=== PATIENT | female | born 1940 | race Caucasian/White ===

== ENCOUNTER 2018-10-23 10:26 | Emergency (ER) | payer OTHER, MEDICAID ==
[~2018-10-23] VITALS: Ht 157.5 cm; Wt 57.4 kg
[2018-10-23 10:33] VITALS: BP 143/74
--- NOTE | 2018-10-23 10:37 | NUR ---
PT AMBULATES TO BED 2
--- NOTE | 2018-10-23 10:41 | NUR ---
Patient being evaluated by physician at bedside.
--- NOTE | 2018-10-23 10:55 | NUR ---
pt. bib grand daughter due to l buttocks pain that radiates to bilat legs. 8/10 sharp pain that worsens when walking. Pt. denies any fall or injury. Bilat pitting edema noted L 3+ and r 2+. rr even and unlabored. denies SOB, denies CP. VSS. Pt. able to speak in full and complete sentences. Cap refill less than 3 sec on bilat. feet. pedal pulses present bilat. ER MD made aware. Safety Precautions Implemented. Grand daughter at bedside. Will continue to monitor.
--- NOTE | 2018-10-23 11:13 | NUR ---
LAB AT BEDSIDE AT THIS TIME
--- NOTE | 2018-10-23 11:19 | NUR ---
XRAY AT BEDSIDE AT THIS TIME
[2018-10-23 11:44] LABS: BASOPHILS % (AUTO) 0.3 % (0.0-2.0); EOSINOPHILS # (AUTO) 0.1 K/uL (0-0.4); EOSINOPHILS % (AUTO) 0.8 % (0.0-4.0); HEMATOCRIT 30.4 % (36-48); HEMOGLOBIN 9.6 g/dL (12.0-16.0); LYMPHOCYTES # (AUTO) 1.4 K/uL (2.5-16.5); LYMPHOCYTES % (AUTO) 12.7 % (20.5-51.1); MEAN CORPUSCULAR HEMOGLOBIN 29 pg (27-31); MEAN CORPUSCULAR HGB CONC 32 g/dL (33-37); MONOCYTES # (AUTO) 0.8 K/uL (0.8-1.0); NEUTROPHILS # (AUTO) 8.7 K/uL (1.8-7.7); NEUTROPHILS % (AUTO) 79.2 % (42.2-75.2); PLATELET COUNT (AUTO) 221 K/uL (140-450); RED BLOOD CELL COUNT(AUTO) 3.37 MIL/uL (4.20-5.40); RED CELL DISTRIBUTION WIDTH 16.6 % (11.6-13.7)
--- NOTE | 2018-10-23 11:52 | NUR ---
US AT BEDSIDE
[2018-10-23 11:55] LABS: ANION GAP 12.7 (8-16); CARBON DIOXIDE 24.2 mmol/L (21-32); CHLORIDE 109 mmol/L (98-107); CREATININE 1.7 mg/dL (0.6-1.3); GLUCOSE 162 mg/dL (74-106); POTASSIUM 4.9 mmol/L (3.5-5.1); SODIUM SERUM 141 mmol/L (136-145); UREA NITROGEN, BLOOD 35 mg/dL (7-18)
[2018-10-23 12:00] LABS: PROTHROMBIN TIME 9.4 secs (10.8-13.4)
[2018-10-23 12:01] LABS: APPEARANCE,URINE CLEAR (CLEAR); BILIRUBIN,URINE NEGATIVE (NEGATIVE); BLOOD, URINE NEGATIVE (NEGATIVE); COLOR,URINE YELLOW (YELLOW); LEUKOCYTE ESTERASE ,URINE TRACE (NEGATIVE); NITRITE, URINE NEGATIVE (NEGATIVE); PH,URINE 6.5 (5.0-9.0); UGLUCOSE NEGATIVE (NEGATIVE)
[2018-10-23 12:02] LABS: ALBUMIN 2.1 g/dL (3.4-5.0); ASPARTATE AMINOTRANSFERASE 17 U/L (15-37); TOTAL BILIRUBIN 0.2 mg/dL (0.0-1.0)
[2018-10-23 12:05] LABS: MAGNESIUM 2.1 mg/dL (1.8-2.4)
[2018-10-23 12:08] LABS: RBC,URINE 0-5 (RARE) /HPF (0-5)
--- NOTE | 2018-10-23 12:24 | NUR ---
REPORT FOR IMAGING AND US NOT AVAILABLE AT THIS TIME, CALLED AND SPOKE TO ANGELIKA WHO STATED " I WILL FOLLOW UP ON THE REPORTS".
--- NOTE | 2018-10-23 13:00 | NUR ---
PT. RESTING COMFORTABLY IN BED, RR EVEN AND UNLABORED. HOB ELEVATED. WILL CONTINUE TO MONITOR. FAMILY AT BEDSIDE.
[2018-10-23] MEDS ORDERED: DEXAMETHASONE 10 MG/ML VIAL IM ONE (13:35)
[2018-10-23 14:20] VITALS: BP 145/74
--- NOTE | 2018-10-23 14:20 | NUR ---
Patient discharged with v/s stable. Written and verbal after care instructions given and explained. Patient alert, oriented and verbalized understanding of instructions. Ambulatory with steady gait. All questions addressed prior to discharge. ID band removed. Patient advised to follow up with PMD. Rx of Tramadol 50mg given. Patient educated on indication of medication including possible reaction and side effects. Opportunity to ask questions provided and answered.
== END 2018-10-23 14:20 | disposition home or self-care (01) ==
LOC: MED 10:26
DX: M16.12 Unilateral primary osteoarthritis, left hip (principal); N18.3 Chronic kidney disease, stage 3 (moderate)
CPT/HCPCS: 36415; 71045; 73502; 80053; 81001; 83735; 83880; 84484; 84550; 85025; 85379; 85610; 85730; 87086; 93005; 93971; 96372; 99284; J1100; Q0092

== ENCOUNTER 2019-05-31 17:16 | Emergency (ER) | payer OTHER, MEDICAID ==
[~2019-05-31] VITALS: Ht 154.9 cm; Wt 54.4 kg
[2019-05-31 17:43] VITALS: BP 116/62
--- NOTE | 2019-05-31 18:02 | NUR ---
PT BIB WHEELCHAIR TO ER BED 1
--- NOTE | 2019-05-31 18:23 | NUR ---
US TECH AT BEDSIDE
--- NOTE | 2019-05-31 18:26 | NUR ---
79F BIB FAMILY C/O RT LEG PAIN X3 WEEKS , W/ SWELLING AND WARMTH. DENIES ERYTHEMA. STATES AMBULATORY WITH LIMP. WILL CONTINUE ASSESSMENT WHEN ULTRASOUND IS COMPLETE PMH OSTEOATHRITIS, KIDNEY DISEASE
[2019-05-31] MEDS ORDERED: ACETAMINOPHEN 650 MG SUPP RC ONE (19:30)
[2019-05-31] MEDS ORDERED: ACETAMINOPHEN 325 MG TAB PO ONE (19:55)
[2019-05-31] MEDS ORDERED: ACETAMINOPHEN 325 MG TAB ONE (20:03)
[2019-05-31 20:56] VITALS: BP 124/59
== END 2019-05-31 20:56 | disposition home or self-care (01) ==
LOC: MED 17:16
DX: M17.11 Unilateral primary osteoarthritis, right knee (principal); Z88.8 Allergy status to other drugs, medicaments and biological substances
CPT/HCPCS: 73562; 93971; 99284; Q0092

== ENCOUNTER 2021-09-01 12:38 | Inpatient (IN) | payer OTHER, MEDICAID ==
[~2021-09-01] VITALS: Ht 152.4 cm; Wt 59.9 kg
[2021-09-01 12:40] VITALS: BP 101/38
[2021-09-01] MEDS ORDERED: ONDANSETRON 4 MG/2 ML VIAL IVP ONE ×2 (14:15→16:05)
[2021-09-01] MEDS ORDERED: MORPHINE SULFATE 2 MG/ML SYR IVP ONE (14:15)
[2021-09-01 14:37] LABS: BASOPHILS # (AUTO) 0.2 K/uL (0.00-0.22); BASOPHILS % (AUTO) 1.2 % (0.0-2.0); EOSINOPHILS % (AUTO) 0.3 % (0.0-4.0); HEMATOCRIT 32.3 % (36-48); HEMOGLOBIN 10.7 g/dL (12.0-16.0); LYMPHOCYTES % (AUTO) 6.8 % (20.5-51.1); MEAN CORPUSCULAR HEMOGLOBIN 29 pg (27-31); MEAN CORPUSCULAR HGB CONC 33 g/dL (33-37); MEAN CORPUSCULAR VOLUME 88.6 fL (80-94); MONOCYTES % (AUTO) 7.2 % (1.7-9.3); NEUTROPHILS # (AUTO) 12.3 K/uL (1.8-7.7); NEUTROPHILS % (AUTO) 84.5 % (42.2-75.2); PLATELET COUNT (AUTO) 289 K/uL (140-450); RED BLOOD CELL COUNT(AUTO) 3.65 MIL/uL (4.20-5.40); RED CELL DISTRIBUTION WIDTH 13.5 % (11.6-13.7); WHITE BLOOD COUNT (AUTO) 14.6 K/uL (4.8-10.8)
[2021-09-01] MEDS ORDERED: NACL 0.9% 1,000 ML IV SCH (14:55)
[2021-09-01 15:10] LABS: APPEARANCE,URINE CLEAR (CLEAR); BILIRUBIN,URINE NEGATIVE (NEGATIVE); BLOOD, URINE 1+ (NEGATIVE); COLOR,URINE YELLOW (YELLOW); LEUKOCYTE ESTERASE ,URINE 1+ (NEGATIVE); NITRITE, URINE NEGATIVE (NEGATIVE); UGLUCOSE TRACE (NEGATIVE)
[2021-09-01 15:22] LABS: ALBUMIN 2.7 g/dL (3.4-5.0); AMYLASE 56 U/L (25-115); ASPARTATE AMINOTRANSFERASE 20 U/L (15-37); CARBON DIOXIDE 22.2 mmol/L (21-32); CHLORIDE 103 mmol/L (98-107); GLUCOSE 240 mg/dL (74-106); LIPASE 111 U/L (73-393); POTASSIUM 3.2 mmol/L (3.5-5.1); SODIUM SERUM 136 mmol/L (136-145); TOTAL BILIRUBIN 0.3 mg/dL (0.0-1.0); UREA NITROGEN, BLOOD 40 mg/dL (7-18)
[2021-09-01 15:27] LABS: RBC,URINE 0-5 /HPF (0-5)
[2021-09-01] MEDS ORDERED: ONDANSETRON 4 MG/2 ML VIAL ONE (15:29)
[2021-09-01] MEDS ORDERED: ASPIRIN 81 MG TAB.CHEW PO SCH (17:40)
[2021-09-01] MEDS ORDERED: GABA100C PO (19:33)
[2021-09-01] MEDS ORDERED: METO25TE2 PO (19:33)
[2021-09-01] MEDS ORDERED: FERR325E14 PO (19:33)
[2021-09-01] MEDS ORDERED: ASPI-1379 PO (19:33)
[2021-09-01] MEDS ORDERED: PRED10TA5 PO (19:33)
[2021-09-01] MEDS ORDERED: guaiFENesin DM 200/20 MG-10 ML 10 ML UDC PO PRN (21:05)
[2021-09-01] MEDS ORDERED: DOCUSATE SODIUM 100 MG GELCAP PO PRN (21:05)
[2021-09-01] MEDS ORDERED: ACETAMINOPHEN 325 MG TAB PO PRN (21:05)
[2021-09-01] MEDS ORDERED: POTASSIUM CHLORIDE 10 MEQ TABER PO PRN (21:05)
[2021-09-01] MEDS ORDERED: ONDANSETRON 4 MG/2 ML VIAL IM/IVP PRN (21:05)
[2021-09-01] MEDS ORDERED: ZOLPIDEM 5 MG TAB PO PRN (21:05)
[2021-09-01] MEDS: NACL 0.9% 1,000 ML IV SCH (21:09)
[2021-09-01] MEDS ORDERED: NITROGLYCERIN 0.4 MG TAB SL PRN (21:10)
[2021-09-01 21:29] LABS: BARBITURATE, URINE NEGATIVE ng/ml (NEG <=200); BENZODIAZEPINE, URINE NEGATIVE ng/mL (NEG <=200)
[2021-09-01 21:30] LABS: CANNABINOID, URINE NEGATIVE ng/mL (NEG <=50); COCAINE, URINE NEGATIVE ng/mL (NEG <=300); OPIATE, URINE NEGATIVE ng/mL (NEG <=2000); PHENCYCLIDINE SCREEN,URINE NEGATIVE ng/mL (NEG <=25)
[2021-09-01 21:45] LABS: PROTHROMBIN TIME 9.6 secs (10.8-13.4)
[2021-09-01 21:56] LABS: CHOL/HDL RATIO 2.4 (1-4.5); FREE T4 (FREE THYROXINE) 0.97 ng/dL (0.76-1.46); MAGNESIUM 2.2 mg/dL (1.8-2.4); PHOSPHORUS 2.3 mg/dL (2.5-4.9); THYROID STIMULATING HORMONE 0.03 uIU/mL (0.34-3.74)
[2021-09-01] MEDS ORDERED: cefTRIAXone 1,000 MG VIAL ONE (23:54)
[2021-09-02] MEDS: NACL 0.9% 1,000 ML IV SCH ×4 (00:15→15:44)
[2021-09-02 04:00] VITALS: BP 111/53
[2021-09-02 07:12] LABS: ANION GAP 11.1 (8-16); CARBON DIOXIDE 24.4 mmol/L (21-32); CHLORIDE 109 mmol/L (98-107); CREATININE 1.6 mg/dL (0.6-1.3); GLUCOSE 86 mg/dL (74-106); POTASSIUM 3.5 mmol/L (3.5-5.1); SODIUM SERUM 141 mmol/L (136-145); UREA NITROGEN, BLOOD 31 mg/dL (7-18)
[2021-09-02 07:17] LABS: BASOPHILS % (AUTO) 0.2 % (0.0-2.0); EOSINOPHILS # (AUTO) 0.1 K/uL (0-0.4); EOSINOPHILS % (AUTO) 1.2 % (0.0-4.0); HEMATOCRIT 30.4 % (36-48); HEMOGLOBIN 10.1 g/dL (12.0-16.0); LYMPHOCYTES # (AUTO) 1.7 K/uL (2.5-16.5); LYMPHOCYTES % (AUTO) 19.4 % (20.5-51.1); MEAN CORPUSCULAR HEMOGLOBIN 29 pg (27-31); MEAN CORPUSCULAR HGB CONC 33 g/dL (33-37); MEAN CORPUSCULAR VOLUME 88.9 fL (80-94); MONOCYTES # (AUTO) 0.8 K/uL (0.8-1.0); MONOCYTES % (AUTO) 9.5 % (1.7-9.3); NEUTROPHILS # (AUTO) 6.2 K/uL (1.8-7.7); NEUTROPHILS % (AUTO) 69.7 % (42.2-75.2); PLATELET COUNT (AUTO) 244 K/uL (140-450); RED BLOOD CELL COUNT(AUTO) 3.42 MIL/uL (4.20-5.40); RED CELL DISTRIBUTION WIDTH 13.7 % (11.6-13.7)
[2021-09-02 08:00] VITALS: BP 115/77
[2021-09-02] MEDS: ECOTRIN 81 MG TABEC PO SCH (08:44)
[2021-09-02] MEDS: FERROUS SULFATE 325 MG TABEC PO SCH ×3 (08:44→17:45)
[2021-09-02] MEDS: PANTOPRAZOLE 40 MG TABEC PO SCH (08:45)
[2021-09-02] MEDS: lisinopriL 5 MG TAB PO SCH (08:45)
[2021-09-02] MEDS ORDERED: METOPROLOL 25 MG TAB PO SCH (09:00)
[2021-09-02] MEDS: METOPROLOL SUCCINATE 50 MG TABER PO SCH (10:41)
[2021-09-02 12:00] VITALS: BP 117/57
[2021-09-02] MEDS: HYDROcodone/APAP 7.5/325 MG 1 TAB PO PRN (12:51)
[2021-09-02 16:00] VITALS: BP 115/58
[2021-09-02] MEDS: ATORVASTATIN 20 MG TAB PO SCH (17:44)
[2021-09-02 20:00] VITALS: BP 102/51
[2021-09-02] MEDS: GABAPENTIN 100 MG CAP PO SCH (21:30)
[2021-09-03] VITALS: BP 95/40
[2021-09-03 04:00] VITALS: BP 105/55
[2021-09-03] MEDS: NACL 0.9% 1,000 ML IV SCH ×2 (06:25→23:05)
[2021-09-03 06:27] LABS: BASOPHILS % (AUTO) 0.4 % (0.0-2.0); EOSINOPHILS # (AUTO) 0.1 K/uL (0-0.4); EOSINOPHILS % (AUTO) 0.7 % (0.0-4.0); HEMATOCRIT 28.4 % (36-48); HEMOGLOBIN 9.4 g/dL (12.0-16.0); LYMPHOCYTES # (AUTO) 1.6 K/uL (2.5-16.5); LYMPHOCYTES % (AUTO) 16.2 % (20.5-51.1); MEAN CORPUSCULAR HEMOGLOBIN 30 pg (27-31); MEAN CORPUSCULAR HGB CONC 33 g/dL (33-37); MEAN CORPUSCULAR VOLUME 89.3 fL (80-94); MONOCYTES # (AUTO) 1.1 K/uL (0.8-1.0); MONOCYTES % (AUTO) 10.9 % (1.7-9.3); NEUTROPHILS # (AUTO) 7.2 K/uL (1.8-7.7); NEUTROPHILS % (AUTO) 71.8 % (42.2-75.2); PLATELET COUNT (AUTO) 248 K/uL (140-450); RED BLOOD CELL COUNT(AUTO) 3.18 MIL/uL (4.20-5.40); RED CELL DISTRIBUTION WIDTH 13.5 % (11.6-13.7); WHITE BLOOD COUNT (AUTO) 10.1 K/uL (4.8-10.8)
[2021-09-03 06:51] LABS: ANION GAP 13.5 (8-16); CHLORIDE 111 mmol/L (98-107); CREATININE 1.6 mg/dL (0.6-1.3); GLUCOSE 80 mg/dL (74-106); POTASSIUM 3.5 mmol/L (3.5-5.1); SODIUM SERUM 142 mmol/L (136-145); UREA NITROGEN, BLOOD 25 mg/dL (7-18)
[2021-09-03 08:00] VITALS: BP 93/52
[2021-09-03] MEDS ORDERED: REGADENOSON 0.4 MG/5 ML SYR IV SCH (08:00)
[2021-09-03] MEDS: METOPROLOL SUCCINATE 50 MG TABER PO SCH (08:28)
[2021-09-03] MEDS: PANTOPRAZOLE 40 MG TABEC PO SCH (08:28)
[2021-09-03] MEDS: FERROUS SULFATE 325 MG TABEC PO SCH ×3 (08:28→17:46)
[2021-09-03] MEDS: ECOTRIN 81 MG TABEC PO SCH (08:28)
[2021-09-03] MEDS: lisinopriL 5 MG TAB PO SCH (08:29)
[2021-09-03 09:06] LABS: T4 (THYROXINE) 5.7 ug/dL (4.5-12.0)
[2021-09-03 12:00] VITALS: BP 93/52
[2021-09-03 16:00] VITALS: BP 107/51
[2021-09-03] MEDS: ATORVASTATIN 20 MG TAB PO SCH (17:46)
[2021-09-03 20:00] VITALS: BP 98/54
[2021-09-03] MEDS: HYDROcodone/APAP 7.5/325 MG 1 TAB PO PRN (20:19)
[2021-09-03] MEDS: GABAPENTIN 100 MG CAP PO SCH (20:19)
[2021-09-04] VITALS: BP 126/53
[2021-09-04 04:00] VITALS: BP 127/62
[2021-09-04 06:23] LABS: BASOPHILS % (AUTO) 0.4 % (0.0-2.0); EOSINOPHILS # (AUTO) 0.2 K/uL (0-0.4); EOSINOPHILS % (AUTO) 1.7 % (0.0-4.0); HEMATOCRIT 30.8 % (36-48); HEMOGLOBIN 10.2 g/dL (12.0-16.0); LYMPHOCYTES # (AUTO) 1.6 K/uL (2.5-16.5); LYMPHOCYTES % (AUTO) 16.2 % (20.5-51.1); MEAN CORPUSCULAR HEMOGLOBIN 30 pg (27-31); MEAN CORPUSCULAR HGB CONC 33 g/dL (33-37); MEAN CORPUSCULAR VOLUME 89.5 fL (80-94); MONOCYTES # (AUTO) 0.8 K/uL (0.8-1.0); MONOCYTES % (AUTO) 8.7 % (1.7-9.3); NEUTROPHILS # (AUTO) 7.1 K/uL (1.8-7.7); PLATELET COUNT (AUTO) 271 K/uL (140-450); RED BLOOD CELL COUNT(AUTO) 3.44 MIL/uL (4.20-5.40); RED CELL DISTRIBUTION WIDTH 13.8 % (11.6-13.7); WHITE BLOOD COUNT (AUTO) 9.7 K/uL (4.8-10.8)
[2021-09-04 06:34] LABS: ANION GAP 12.8 (8-16); CARBON DIOXIDE 21.6 mmol/L (21-32); CHLORIDE 112 mmol/L (98-107); CREATININE 1.6 mg/dL (0.6-1.3); GLUCOSE 89 mg/dL (74-106); POTASSIUM 3.4 mmol/L (3.5-5.1); SODIUM SERUM 143 mmol/L (136-145); UREA NITROGEN, BLOOD 21 mg/dL (7-18)
[2021-09-04 08:00] VITALS: BP 105/61
[2021-09-04] MEDS ORDERED: ATOR20TA40 PO (08:58)
[2021-09-04] MEDS ORDERED: LISI5TAB24 PO (08:58)
[2021-09-04] MEDS: ECOTRIN 81 MG TABEC PO SCH (09:53)
[2021-09-04] MEDS: METOPROLOL SUCCINATE 50 MG TABER PO SCH (09:53)
[2021-09-04] MEDS: FERROUS SULFATE 325 MG TABEC PO SCH (09:54)
[2021-09-04] MEDS: PANTOPRAZOLE 40 MG TABEC PO SCH (09:54)
[2021-09-04] MEDS: lisinopriL 5 MG TAB PO SCH (09:54)
[2021-09-04 15:07] LABS: URINE TOTAL PROTEIN 93.4 mg/dL (0-12)
== END 2021-09-04 13:00 | disposition home health service (06) | DRG 871 ==
LOC: MED 12:38 → MTU 18:06
PROVIDERS: ADMIT Family Medicine; ATTEND Family Medicine
DX: A41.9 Sepsis, unspecified organism (principal); E43 Unspecified severe protein-calorie malnutrition; N17.0 Acute kidney failure with tubular necrosis; I21.A1 Myocardial infarction type 2; N39.0 Urinary tract infection, site not specified; I31.3 Pericardial effusion (noninflammatory); I45.2 Bifascicular block; J90 Pleural effusion, not elsewhere classified; E87.6 Hypokalemia; I87.8 Other specified disorders of veins; E83.39 Other disorders of phosphorus metabolism; M19.90 Unspecified osteoarthritis, unspecified site; K44.9 Diaphragmatic hernia without obstruction or gangrene; K74.60 Unspecified cirrhosis of liver; E78.5 Hyperlipidemia, unspecified; K76.0 Fatty (change of) liver, not elsewhere classified; I12.9 Hypertensive chronic kidney disease with stage 1 through stage 4 chronic kidney disease, or unspecified chronic kidney disease; N18.9 Chronic kidney disease, unspecified; Z90.49 Acquired absence of other specified parts of digestive tract
CPT/HCPCS: 36415; 71045; 80048; 80053; 80305; 81001; 82150; 82570; 83036; 83690; 83735; 83880; 84100; 84300; 84436; 84439; 84443; 84479; 84484; 85025; 85610; 85730; 87081; 87086; 93005; 93017; 93970; 96361; 96374; 96375; 99291; A9500; A9502; J0696; J1644; J2270; J2405; J2785; J7060; Q0092

== ENCOUNTER 2022-11-08 09:47 | Inpatient (IN) | payer OTHER, MEDICAID ==
[~2022-11-08] VITALS: Ht 157.5 cm; Wt 61.2 kg
[~2022-11-08 09:47] MED LIST: ASPI-1379 PO; ATOR20TA40 PO; FERR325E14 PO; GABA100C PO; LISI5TAB24 PO; METO25TE2 PO; PRED10TA5 PO
[2022-11-08 09:53] VITALS: BP 91/59
--- NOTE | 2022-11-08 10:29 | NUR ---
Pt ambulated with assistance to bed 07.
[2022-11-08] MEDS ORDERED: NACL 0.9% 1,000 ML IV ONE (11:25)
--- NOTE | 2022-11-08 11:36 | NUR ---
X-Ray at bedside.
--- NOTE | 2022-11-08 11:36 | NUR ---
Handed Michelle and Flu swabs to lab.
[2022-11-08 12:13] LABS: ALBUMIN 3.1 g/dL (3.4-5.0); ANION GAP 14.4 (8-16); ASPARTATE AMINOTRANSFERASE 18 U/L (15-37); CARBON DIOXIDE 26.7 mmol/L (21-32); CHLORIDE 110 mmol/L (98-107); CREATININE 1.9 mg/dL (0.6-1.3); GLUCOSE 101 mg/dL (74-106); LIPASE 51 U/L (73-393); POTASSIUM 4.1 mmol/L (3.5-5.1); SODIUM SERUM 147 mmol/L (136-145); TOTAL BILIRUBIN 0.4 mg/dL (0.0-1.0); UREA NITROGEN, BLOOD 32 mg/dL (7-18)
--- NOTE | 2022-11-08 12:15 | NUR ---
Trop of 1.59 reported to ER .
[2022-11-08 12:32] LABS: BASOPHILS % (AUTO) 0.2 % (0.0-2.0); EOSINOPHILS # (AUTO) 0.1 K/uL (0-0.4); EOSINOPHILS % (AUTO) 0.4 % (0.0-4.0); HEMATOCRIT 32.9 % (36-48); HEMOGLOBIN 10.7 g/dL (12.0-16.0); LYMPHOCYTES # (AUTO) 1.5 K/uL (2.5-16.5); LYMPHOCYTES % (AUTO) 9.7 % (20.5-51.1); MEAN CORPUSCULAR HEMOGLOBIN 30 pg (27-31); MEAN CORPUSCULAR HGB CONC 33 g/dL (33-37); MEAN CORPUSCULAR VOLUME 90.8 fL (80-94); MONOCYTES # (AUTO) 1.3 K/uL (0.8-1.0); MONOCYTES % (AUTO) 8.3 % (1.7-9.3); NEUTROPHILS # (AUTO) 12.9 K/uL (1.8-7.7); NEUTROPHILS % (AUTO) 81.4 % (42.2-75.2); PLATELET COUNT (AUTO) 248 K/uL (140-450); RED BLOOD CELL COUNT(AUTO) 3.63 MIL/uL (4.20-5.40); RED CELL DISTRIBUTION WIDTH 14.1 % (11.6-13.7); WHITE BLOOD COUNT (AUTO) 15.9 K/uL (4.8-10.8)
[2022-11-08] MEDS ORDERED: MORPHINE SULFATE 2 MG/ML SYR IVP PRN (14:05)
[2022-11-08] MEDS ORDERED: ZOLPIDEM 10 MG TAB PO PRN (14:05)
[2022-11-08] MEDS ORDERED: POTASSIUM CHLORIDE 10 MEQ TABER PO PRN (14:05)
[2022-11-08] MEDS ORDERED: MAG SULF 2000 MG/WATER PREMIX 50 ML IV PRN (14:05)
[2022-11-08] MEDS ORDERED: ACETAMINOPHEN 325 MG TAB PO PRN (14:05)
[2022-11-08] MEDS ORDERED: LORazepam 2 MG/ML VIAL IVP PRN (14:05)
[2022-11-08] MEDS ORDERED: DOCUSATE SODIUM 100 MG GELCAP PO PRN (14:05)
--- NOTE | 2022-11-08 14:24 | NUR ---
Pt provided with sandwich and juice.
[2022-11-08] MEDS ORDERED: AZITHROMYCIN 500 MG INJ VIAL IV ONE (15:14)
[2022-11-08] MEDS: AZITHROMYCIN 500 MG in DEXTROSE 5% 250 ML IV SCH (15:16)
[2022-11-08] MEDS: ONDANSETRON 4 MG/2 ML VIAL IVP PRN (16:12)
[2022-11-08] MEDS ORDERED: cefTRIAXone 1,000 MG VIAL ONE (17:22)
[2022-11-08] MEDS: FERROUS SULFATE 325 MG TABEC PO SCH (17:32)
[2022-11-08] MEDS: ATORVASTATIN 20 MG TAB PO SCH (17:32)
--- NOTE | 2022-11-08 20:29 | NUR ---
GAVE REPORT TO TERE MOROCHO . WILL TRANSPORT PT VIA [facility]
--- NOTE | 2022-11-08 20:48 | NUR ---
Patient will be admitted to care of . Admited to[facility]URG. Will go to [id number]. Belongings list completed. Report to TERE MOROCHO.
--- NOTE | 2022-11-08 20:52 | NUR ---
PT TRANSPORTED [facility]ANC[facility]LL[facility] FROM ER. PT IS AMBULATORY. GAIT STEADY. PT IS ALERT AND ORIENTATED PRYDEINIG SPEAKER. PT IS ON NC 2L SATING 98%. PT HAS RIGHT HAND 20 GAUGE SALINE LOCK. PLAN OF CARE DISCUSSED. 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 WILL CONTINUE TO MONITOR THE PT.
[2022-11-08 21:00] VITALS: BP 93/40
[2022-11-08] MEDS: GABAPENTIN 100 MG CAP PO SCH (21:44)
--- NOTE | 2022-11-08 21:45 | NUR ---
SCHEDULE MEDICATION GIVEN. NO ADVERSE REACTION NOTED. WILL CONTINUE TO MONITOR THE PT.
[2022-11-08] MEDS ORDERED: guaiFENesin DM 200/20 MG-10 ML 10 ML UDC PO PRN (22:10)
[2022-11-09] VITALS: BP 112/56
--- NOTE | 2022-11-09 00:59 | NUR ---
PT IS SLEEPING IN BED COMFORTABLY. PT IS NOT IN ANY DISTRESS. BREATHING EVEN AND UNLABORED. SAFETY PRECAUTIONS TAKEN. WILL CONTINUE TO MONITOR THE PT.
[2022-11-09 04:00] VITALS: BP 112/56
--- NOTE | 2022-11-09 05:21 | NUR ---
OBSERVED PT. PT IS AWAKE AND SITTING BY BEDSIDE. PT DENIES ANY PAIN AND HAS NO COMPLAINS AT THIS TIME. CALL LIGHT WITHIN REACH. WILL CONTINUE TO MONITOR THE PT.
[2022-11-09 07:20] LABS: ANION GAP 8.7 (8-16); CARBON DIOXIDE 26.3 mmol/L (21-32); CHLORIDE 110 mmol/L (98-107); CREATININE 1.8 mg/dL (0.6-1.3); GLUCOSE 85 mg/dL (74-106); SODIUM SERUM 141 mmol/L (136-145); UREA NITROGEN, BLOOD 21 mg/dL (7-18)
[2022-11-09 07:25] LABS: BASOPHILS # (AUTO) 0.1 K/uL (0.00-0.22); BASOPHILS % (AUTO) 0.8 % (0.0-2.0); EOSINOPHILS # (AUTO) 0.2 K/uL (0-0.4); EOSINOPHILS % (AUTO) 1.1 % (0.0-4.0); HEMATOCRIT 29.1 % (36-48); HEMOGLOBIN 9.6 g/dL (12.0-16.0); LYMPHOCYTES # (AUTO) 1.9 K/uL (2.5-16.5); MEAN CORPUSCULAR HEMOGLOBIN 30 pg (27-31); MEAN CORPUSCULAR HGB CONC 33 g/dL (33-37); MEAN CORPUSCULAR VOLUME 90.3 fL (80-94); MONOCYTES # (AUTO) 0.7 K/uL (0.8-1.0); MONOCYTES % (AUTO) 5.2 % (1.7-9.3); NEUTROPHILS # (AUTO) 10.8 K/uL (1.8-7.7); NEUTROPHILS % (AUTO) 78.9 % (42.2-75.2); PLATELET COUNT (AUTO) 208 K/uL (140-450); RED BLOOD CELL COUNT(AUTO) 3.23 MIL/uL (4.20-5.40); RED CELL DISTRIBUTION WIDTH 14.2 % (11.6-13.7); WHITE BLOOD COUNT (AUTO) 13.7 K/uL (4.8-10.8)
--- NOTE | 2022-11-09 07:25 | NUR ---
ENDORSED PT TO DAY SHIFT RN FOR CONTINUITY OF CARE. PT IS STABLE.
--- NOTE | 2022-11-09 07:26 | NUR ---
RECEIVED REPORT FROM MEDICAL VAN DRIVER NURSE LIBAN FOR CONTINUITY OF CARE. PT SLEEPING, EASILY AROUSABLE BY VERBAL STIMULI. RESPIRATIONS EVEN AND UNLABORED ON RA. NO DISTRESS NOTED. NO SIGNS OF PAIN. SKIN INTACT, WARM AND DRY TO TOUCH. CALL LIGHT WITHIN REACH. SAFETY PRECAUTIONS IN PLACE.
[2022-11-09 08:00] VITALS: BP 112/48
[2022-11-09] MEDS ORDERED: cefTRIAXone 1,000 MG in LIDOCAINE MPF 1% 2.1 ML IM SCH (09:00)
[2022-11-09] MEDS: ECOTRIN 81 MG TABEC PO SCH (09:22)
[2022-11-09] MEDS: FERROUS SULFATE 325 MG TABEC PO SCH ×3 (09:22→16:42)
[2022-11-09] MEDS: METOPROLOL SUCCINATE 50 MG TABER PO SCH (09:23)
--- NOTE | 2022-11-09 09:27 | NUR ---
ADMINISTERED DUE MEDS. PT TOLERATED WELL.
--- NOTE | 2022-11-09 12:55 | NUR ---
PT SITTING IN BED. FINISHED LUNCH, TOLERATED WELL. DENIES PAIN. FAMILY MEMBER AT BEDSIDE.
[2022-11-09] MEDS: AZITHROMYCIN 500 MG in DEXTROSE 5% 250 ML IV SCH (15:21)
--- NOTE | 2022-11-09 15:21 | NUR ---
IV AZITHROMYCIN ADMINISTERED BY RASHAWN SANTOS. NO ADVERSE REACTION NOTED.
[2022-11-09 16:00] VITALS: BP 112/60
[2022-11-09] MEDS: ATORVASTATIN 20 MG TAB PO SCH (16:42)
--- NOTE | 2022-11-09 18:26 | NUR ---
PT C/O OF HERNANDEZ 01/10. PRN PAIN MED GIVEN MD ORDERED.
--- NOTE | 2022-11-09 19:30 | NUR ---
RECEIVED REPORT FROM DAY SHIFT SHEN CLAYTON FOR CONTINUITY OF CARE. PT IS AAOX4 ON RA. PT NOT IN ANY RESPIRATORY DISTRESS. PT IS ENGLISH SPEAKER. PT HAS RIGHT HAND 20 GAUGE SALINE LOCK. PT DENIES ANY PAIN AND HAS NO COMPLAINS AT THIS TIME. CALL LIGHT WITHIN REACH. WILL CONTINUE TO MONITOR THE PT.
--- NOTE | 2022-11-09 19:41 | NUR ---
ENDORSED PT TO POWDER SHOVELER NURSE FOR CONTINUITY OF CARE. ALL NEEDS MET THROUGHOUT SHIFT. PT IS IN STABLE CONDITION.
[2022-11-09 20:00] VITALS: BP 103/44
[2022-11-09] MEDS: GABAPENTIN 100 MG CAP PO SCH (20:42)
[2022-11-09] MEDS: ONDANSETRON 4 MG/2 ML VIAL IVP PRN (20:47)
--- NOTE | 2022-11-09 20:50 | NUR ---
SCHEDULE MEDICATION GIVEN. NO ADVERSE REACTION NOTED. PT ALSO COMPLAINED OF NAUSEA. ZOFRAN GIVEN. NO OTHER COMPLAINS. WILL CONTINUE TO MONITOR THE PT.
[2022-11-10] VITALS: BP 96/42
--- NOTE | 2022-11-10 | NUR ---
PT IS SLEEPING IN BED COMFORTABLY. PT IS NOT IN ANY DISTRESS. BREATHING EVEN AND UNLABORED. SAFETY PRECAUTIONS TAKEN. WILL CONTINUE TO MONITOR THE PT.
[2022-11-10 04:00] VITALS: BP 96/42
--- NOTE | 2022-11-10 04:58 | NUR ---
PT IS SLEEPING IN BED COMFORTABLY. PT IS NOT IN ANY DISTRESS. BREATHING EVEN AND UNLABORED. SAFETY PRECAUTIONS TAKEN. WILL CONTINUE TO MONITOR THE PT.
--- NOTE | 2022-11-10 07:09 | NUR ---
ENDORSED PT TO DAY SHIFT RN FOR CONTINUITY OF CARE. PT IS STABLE.
--- NOTE | 2022-11-10 07:51 | NUR ---
11/10/2022 0800: PT RECEIVED FROM PM SHIFT. PT RESTING IN BED NO ACUTE DISTRESS NOTED AT THIS TIME. [id number].
[2022-11-10 07:53] LABS: BASOPHILS # (AUTO) 0.1 K/uL (0.00-0.22); BASOPHILS % (AUTO) 0.8 % (0.0-2.0); EOSINOPHILS # (AUTO) 0.2 K/uL (0-0.4); EOSINOPHILS % (AUTO) 1.9 % (0.0-4.0); HEMATOCRIT 30.6 % (36-48); HEMOGLOBIN 10.2 g/dL (12.0-16.0); LYMPHOCYTES # (AUTO) 1.8 K/uL (2.5-16.5); LYMPHOCYTES % (AUTO) 19.7 % (20.5-51.1); MEAN CORPUSCULAR HEMOGLOBIN 30 pg (27-31); MEAN CORPUSCULAR HGB CONC 33 g/dL (33-37); MEAN CORPUSCULAR VOLUME 89.8 fL (80-94); MONOCYTES # (AUTO) 0.5 K/uL (0.8-1.0); MONOCYTES % (AUTO) 5.4 % (1.7-9.3); NEUTROPHILS # (AUTO) 6.6 K/uL (1.8-7.7); NEUTROPHILS % (AUTO) 72.2 % (42.2-75.2); PLATELET COUNT (AUTO) 210 K/uL (140-450); RED BLOOD CELL COUNT(AUTO) 3.41 MIL/uL (4.20-5.40); RED CELL DISTRIBUTION WIDTH 13.8 % (11.6-13.7); WHITE BLOOD COUNT (AUTO) 9.2 K/uL (4.8-10.8)
[2022-11-10 08:00] VITALS: BP 105/58
[2022-11-10 08:17] LABS: ANION GAP 10.9 (8-16); CARBON DIOXIDE 25.9 mmol/L (21-32); CHLORIDE 108 mmol/L (98-107); CREATININE 1.6 mg/dL (0.6-1.3); GLUCOSE 92 mg/dL (74-106); POTASSIUM 3.8 mmol/L (3.5-5.1); SODIUM SERUM 141 mmol/L (136-145); UREA NITROGEN, BLOOD 16 mg/dL (7-18)
[2022-11-10] MEDS: FERROUS SULFATE 325 MG TABEC PO SCH ×2 (08:29→12:17)
[2022-11-10] MEDS: ECOTRIN 81 MG TABEC PO SCH (08:29)
[2022-11-10] MEDS: METOPROLOL SUCCINATE 50 MG TABER PO SCH (08:29)
--- NOTE | 2022-11-10 09:17 | NUR ---
PATIENT HAS BEEN SCREENED AND CATEGORIZED MODERATE NUTRITION RISK. PATIENT WILL BE SEEN WITHIN 3-5 DAYS OF ADMISSION. 11/08/22-11/13/[address]
[2022-11-10 12:00] VITALS: BP 96/42
[2022-11-10] MEDS: AZITHROMYCIN 500 MG in DEXTROSE 5% 250 ML IV SCH (15:21)
[2022-11-10 15:44] VITALS: BP 105/58
[2022-11-10 16:00] VITALS: BP 96/42
--- NOTE | 2022-11-10 18:50 | NUR ---
11/10/2022 16:45 PT DISCHARGED TO HOME. AMBULATED TO WHEELCHAIR WITH A STEADY GAIT. DENIES ANY PAIN. NO SHORTNESS OF BREATH. NO ACUTE DISTRESS NOTED AT THIS TIME. [id number].
== END 2022-11-10 16:45 | disposition home or self-care (01) | DRG 871 ==
LOC: MED 09:47 → MTU 14:01
PROVIDERS: ADMIT Family Medicine; ATTEND Family Medicine
DX: A41.9 Sepsis, unspecified organism (principal); I21.A1 Myocardial infarction type 2; N17.0 Acute kidney failure with tubular necrosis; J18.9 Pneumonia, unspecified organism; E87.1 Hypo-osmolality and hyponatremia; E44.1 Mild protein-calorie malnutrition; D64.9 Anemia, unspecified; K52.9 Noninfective gastroenteritis and colitis, unspecified; I11.0 Hypertensive heart disease with heart failure; I50.9 Heart failure, unspecified; Z20.822 Contact with and (suspected) exposure to COVID-19; E86.0 Dehydration; Z79.899 Other long term (current) drug therapy; Z79.82 Long term (current) use of aspirin; Z88.6 Allergy status to analgesic agent; Z68.24 Body mass index [BMI] 24.0-24.9, adult; Z90.49 Acquired absence of other specified parts of digestive tract
CPT/HCPCS: 36415; 71045; 80048; 80053; 83690; 83735; 84484; 85025; 87081; 93005; 99291; J0456; J0696; J2405; J7030; J7060

== ENCOUNTER 2024-04-17 13:09 | Emergency (ER) | payer OTHER, MEDICAID ==
[~2024-04-17] VITALS: Ht 154.9 cm; Wt 60.6 kg
[2024-04-17 13:32] VITALS: BP 106/39; PULSE 79; RESP 16; TEMP 96.7; O2SAT 94
[2024-04-17 14:37] VITALS: BP 108/47; PULSE 58; RESP 18; TEMP 98.6; O2SAT 97
[2024-04-17] MEDS ORDERED: DICL20GE TP (16:09)
[2024-04-17] MEDS ORDERED: ACET-8905 PO (16:09)
[2024-04-17] MEDS ORDERED: GABA100C PO (16:09)
[2024-04-17] MEDS ORDERED: BACITRACIN OINT 500 UNITS/GM PKT TP ONE (16:28)
[2024-04-17] MEDS: BACITRACIN OINT 500 UNITS/GM PKT TP ONE (16:36)
== END 2024-04-17 16:40 | disposition home or self-care (01) ==
LOC: MED 13:09
DX: S22.41XA Multiple fractures of ribs, right side, initial encounter for closed fracture (principal); S32.008A Other fracture of unspecified lumbar vertebra, initial encounter for closed fracture; S51.011A Laceration without foreign body of right elbow, initial encounter; I10 Essential (primary) hypertension; Z86.79 Personal history of other diseases of the circulatory system; Z79.1 Long term (current) use of non-steroidal anti-inflammatories (NSAID); Z79.899 Other long term (current) drug therapy; Z79.82 Long term (current) use of aspirin; I25.10 Atherosclerotic heart disease of native coronary artery without angina pectoris; M19.90 Unspecified osteoarthritis, unspecified site; Z88.6 Allergy status to analgesic agent; W18.39XA Other fall on same level, initial encounter; Y93.89 Activity, other specified; Y92.89 Other specified places as the place of occurrence of the external cause; Y99.8 Other external cause status
CPT/HCPCS: 71250; 73080; 90471; 90715; 99285